=== PATIENT | male | born 1955 | race Caucasian/White ===

== ENCOUNTER → 2017-04-12 | Emergency (ER) | payer OTHER ==
[~2017-04-12] VITALS: Ht 170.2 cm; Wt 99.8 kg
[~2017-04-12] MED LIST: BENADRYL 50 MG PO; CLONAZEPAM 1MG TAB PO; Cozaar PO; EFFEXOR XR150 MG PO; ELAVIL PO; KALETRA PO; Lipitor 20MG PO; METFORMIN HCL500 MG; POM (MEDICAMENTO EN PHA) PO; SILVER SULFADIAZINE TP; Synthroid PO; TRUVADA 200 MG-300 MG TABLET PO
== END | disposition home or self-care (01) ==
LOC: ER 09:09
DX: S13.4XXA Sprain of ligaments of cervical spine, initial encounter (principal); S30.0XXA Contusion of lower back and pelvis, initial encounter; V49.9XXA Car occupant (driver) (passenger) injured in unspecified traffic accident, initial encounter; Y93.89 Activity, other specified; Y92.488 Other paved roadways as the place of occurrence of the external cause; Y99.8 Other external cause status

== ENCOUNTER 2017-06-14 08:16 | Outpatient (CLI) | payer OTHER | END 2017-06-14 08:27 | disposition home or self-care (01) | LOC: SONOGRAMA 08:16 | DX: N18.2 Chronic kidney disease, stage 2 (mild) (principal); I10 Essential (primary) hypertension; E11.21 Type 2 diabetes mellitus with diabetic nephropathy ==

== ENCOUNTER 2017-08-01 14:30 | Emergency (ER) | payer OTHER ==
[~2017-08-01] VITALS: Ht 170.2 cm; Wt 104.3 kg
== END 2017-08-02 11:00 | disposition home or self-care (01) ==
LOC: ER 14:30
DX: K59.09 Other constipation (principal); N99.841 Postprocedural hematoma of a genitourinary system organ or structure following other procedure

== ENCOUNTER 2017-08-22 07:31 | Outpatient (CLI) | payer OTHER | END 2017-08-22 07:35 | disposition home or self-care (01) | LOC: SONOGRAMA 07:31 | DX: N18.3 Chronic kidney disease, stage 3 (moderate) (principal); I10 Essential (primary) hypertension; R80.9 Proteinuria, unspecified ==

== ENCOUNTER 2018-12-23 16:03 | Emergency (ER) | payer OTHER ==
[~2018-12-23] VITALS: Ht 170.2 cm; Wt 106.6 kg
== END 2018-12-23 20:25 | disposition home or self-care (01) ==
LOC: ER 16:03
DX: K59.09 Other constipation (principal)

== ENCOUNTER 2019-06-18 08:13 | Outpatient (CLI) | payer OTHER | END 2019-06-18 08:20 | disposition home or self-care (01) | LOC: TOM 08:13 | DX: K56.600 Partial intestinal obstruction, unspecified as to cause (principal); K63.5 Polyp of colon ==

== ENCOUNTER 2019-06-26 21:57 | Emergency (ER) | payer OTHER ==
[~2019-06-26] VITALS: Ht 170.2 cm; Wt 106.6 kg
== END 2019-06-27 02:41 | disposition home or self-care (01) ==
LOC: ER 21:57
DX: K59.09 Other constipation (principal)